=== PATIENT | male | born 1925 | race Caucasian/White ===

== ENCOUNTER 2016-11-27 10:48 | Emergency (ER) | payer MEDICARE, OTHER ==
[~2016-11-27] VITALS: Ht 180.3 cm; Wt 75.0 kg
[~2016-11-27 10:48] MED LIST: APIX2.5T PO; ATOR40TA28 PO; BISA5TAB12 PO; COLL30OI TP; COMB5OS OU; DSS100 PO; FERR-89 PO; FOLI1 PO; FOLI1CAP2 PO; INSNOV SQ; LOPE2 PO; LORA0.5T2 PO; METO25 PO; MIDO5TAB23 PO; PANT40TA25 PO; RISP.5 PO; TEMA15CA PO
[2016-11-27] MEDS ORDERED: ASPI-556 PO (10:56)
[2016-11-27] MEDS ORDERED: INSU100I3 SQ (10:56)
[2016-11-27] MEDS ORDERED: ADV250 IH (10:56)
[2016-11-27] MEDS ORDERED: SODIUM CHLORIDE 0.9% 1,000 ML IV ONE (11:45)
[2016-11-27 11:54] LABS: BASOPHILS # (AUTO) 0.02 K/uL (0.00-0.20); BASOPHILS % (AUTO) 0.2 % (0.0-2.0); EOSINOPHILS % (AUTO) 2.14 % (1.0-6.0); HEMATOCRIT 27.9 % (41-53); HEMOGLOBIN 9.1 g/dL (13.5-17.5); LYMPHOCYTES # (AUTO) 1.6 K/uL (1.0-4.8); LYMPHOCYTES % (AUTO) 16.9 % (22.0-44.0); MEAN CORPUSCULAR HEMOGLOBIN 30.6 pg (26.0-34.0); MEAN CORPUSCULAR HGB CONC 32.5 G/dL (31.0-37.0); MEAN CORPUSCULAR VOLUME 94 fL (80-100); MONOCYTES % (AUTO) 10.5 % (2.0-9.0); NEUTROPHILS # (AUTO) 6.6 K/uL (1.8-7.7); NEUTROPHILS % (AUTO) 70.3 % (40.0-70.0); PLATELET COUNT (AUTO) 152 K/uL (150-450); RED BLOOD CELL COUNT(AUTO) 2.97 MIL/uL (4.50-5.90); RED CELL DISTRIBUTION WIDTH 19.2 % (11.5-14.5); WHITE BLOOD COUNT (AUTO) 9.4 K/uL (4.5-11.0)
[2016-11-27 12:01] LABS: APPEARANCE,URINE TURBID (CLEAR); GLUCOSE, URINE (UA) NEGATIVE (NEGATIVE); KETONES,URINE TRACE mg/dL (NEGATIVE); LEUKOCYTE ESTERASE ,URINE SMALL (NEGATIVE); OCCULT BLOOD,URINE MODERATE (NEGATIVE); PH,URINE 5.5 (5.0-8.0); PROTEIN,URINE SEE CONFIRM (NEGATIVE)
[2016-11-27 12:04] LABS: ADD UA MICROSCOPIC YES
[2016-11-27 12:05] LABS: CALCIUM, TOTAL 8.5 mg/dL (8.8-10.5); CREATININE 3.54 mg/dL (0.60-1.30); POTASSIUM 3.7 mmol/L (3.5-5.1)
[2016-11-27 12:12] LABS: BILIRUBIN,TOTAL 0.3 mg/dL (0.1-1.0); TOTAL PROTEIN, SERUM 5.5 g/dL (6.4-8.2); TROPONIN I 0.02 ng/mL (0.00-0.05)
[2016-11-27] MEDS ORDERED: MIDODRINE HCL 5 MG TABLET PO ONE (12:15)
[2016-11-27 12:36] LABS: SULFOSALICYLIC ACID,URINE 2+ (Negative)
[2016-11-27 12:37] LABS: AMORPHOUS SEDIMENT,UR Few /LPF (None Seen); FINE GRANULAR CASTS,URINE 0-2 /LPF (None Seen); SQUAMOUS EPITHELIAL CELL,UR Moderate /LPF (None Seen)
[2016-11-27] MEDS ORDERED: CeFAZolin 1 GM/DEXTROSE 50 ML IV ONE (13:47)
[2016-11-27] MEDS ORDERED: PERTUSS(ACELL),DIPH,TET VAC/PF 0.5 ML VIAL IM ONE (13:48)
[2016-11-27 13:58] VITALS: BP 104/60
== END 2016-11-27 12:51 | disposition home or self-care (01) ==
LOC: EMS 10:50
DX: I95.9 Hypotension, unspecified (principal); E11.22 Type 2 diabetes mellitus with diabetic chronic kidney disease; N18.6 End stage renal disease; M86.9 Osteomyelitis, unspecified; F03.90 Unspecified dementia, unspecified severity, without behavioral disturbance, psychotic disturbance, mood disturbance, and anxiety; J44.9 Chronic obstructive pulmonary disease, unspecified; Z79.4 Long term (current) use of insulin; Z99.2 Dependence on renal dialysis
CPT/HCPCS: 36415; 80053; 81001; 82140; 82962; 83880; 84484; 85025; 93005; 96365; 96366; 99285; J0690; 90715

== ENCOUNTER 2016-12-07 16:43 | Emergency (ER) | payer MEDICARE, OTHER ==
[~2016-12-07] VITALS: Ht 180.3 cm; Wt 79.3 kg
[~2016-12-07 16:43] MED LIST changes: +ADV250 IH; +ASPI-556 PO; +INSU100I3 SQ
[2016-12-07] MEDS ORDERED: ACETAMINOPHEN 325 MG TABLET PO ONE (17:30)
[2016-12-07 20:26] VITALS: BP 113/66
== END 2016-12-07 20:31 | disposition home or self-care (01) ==
LOC: EMS 18:07
DX: M25.512 Pain in left shoulder (principal); J44.9 Chronic obstructive pulmonary disease, unspecified; E11.22 Type 2 diabetes mellitus with diabetic chronic kidney disease; N18.6 End stage renal disease; N40.0 Benign prostatic hyperplasia without lower urinary tract symptoms; Z99.2 Dependence on renal dialysis
CPT/HCPCS: 99284